=== PATIENT | female | born 1980 | race Asian ===

== ENCOUNTER 2020-05-20 20:05 | Emergency (ER) | payer BC ==
[~2020-05-20] VITALS: Ht 160 cm; Wt 46.8 kg
--- NOTE | 2020-05-20 21:10 | NUR ---
PT C/O INFLUENZA LIKE ILLNESS WITH BODY ACHES, CHILLS, FEVERS, AND MILD COUGH. PT HAS POSSIBLE EXPOSURE OT COVID AT WORK. PT ALSO C/O MILD ABD PAIN WITH HX OF FIBROIDS.
[2020-05-20] MEDS ORDERED: ACETAMINOPHEN 325 MG TABLET PO ONE (21:30)
[2020-05-20] MEDS ORDERED: PLEASE ENTER ALLERGIES MC SCH (21:30)
[2020-05-20 21:53] LABS: MICROSCOPIC INDICATED
--- NOTE | 2020-05-20 21:53 | NUR ---
PT MEDICATED ORDERED FOR PAIN. REPORT TO HORTENCIA THOMAS.
[2020-05-20 22:02] LABS: ANION GAP 8 mmol/L (5-15); CALCIUM 7.8 mg/dL (8.5-10.1); CHLORIDE 108 mmol/L (98-107); CREATININE 0.81 mg/dL (0.55-1.02)
[2020-05-20 22:39] VITALS: BP 101/69
--- NOTE | 2020-05-20 22:40 | NUR ---
PT RESTING WITH NO S/S OF ACUTE DISTRESS. PT STATES SHE IS FEELING A LITTLE BETTER AT THIS TIME. VSS. NSR ON MONITOR. REDRAW LAB COMPLETED AND WAITING FOR RESULTS. PT AWARE. CALL LIGHT IN REACH.
[2020-05-20 22:46] LABS: BASOPHILS # (AUTO) 0.01 x10^3/uL (0-0.1); BASOPHILS % (AUTO) 0 % (0-1); EOSINOPHILS # (AUTO) 0.01 x10^3/uL (0-0.4); EOSINOPHILS % (AUTO) 0 % (1-7); LYMPHOCYTES # (AUTO) 0.57 x10^3/uL (1-3.4); LYMPHOCYTES % (AUTO) 15 % (22-44); MD NO; MEAN CORPUSCULAR HEMOGLOBIN 29.7 pg (27.0-34.8); MEAN PLATELET VOLUME 7.5 fL (7.4-10.4); MONOCYTES # (AUTO) 0.28 x10^3/uL (0.2-0.8); MONOCYTES % (AUTO) 8 % (2-9); NEUTROPHILS # (AUTO) 2.87 x10^3/uL (1.8-6.8); NEUTROPHILS % (AUTO) 77 % (42-75); PLATELET COUNT 179 x10^3/uL (130-400); RED CELL DISTRIBUTION WIDTH 13.8 % (9.6-15.2)
[2020-05-20] MEDS ORDERED: LEVOFLOXACIN 750 MG TABLET ONE (22:59)
[2020-05-20] MEDS ORDERED: LEVOFLOXACIN 750 MG TABLET PO ONE (23:00)
== END 2020-05-20 23:35 | disposition home or self-care (01) ==
LOC: ED 23:10
DX: J15.9 Unspecified bacterial pneumonia (principal); R50.9 Fever, unspecified; Z20.828 Contact with and (suspected) exposure to other viral communicable diseases; R06.00 Dyspnea, unspecified; R10.31 Right lower quadrant pain; R00.0 Tachycardia, unspecified
CPT/HCPCS: 36415; 71045; 80048; 81001; 81025; 85025; 87086; 93005; 99285; U0001